=== PATIENT | female | born 1955 | race Two or more races ===

== ENCOUNTER 2019-05-11 11:24 | Emergency (ER) | payer OTHER, MEDICAID ==
[~2019-05-11] VITALS: Ht 167.6 cm; Wt 105.7 kg
[2019-05-11 12:21] LABS: Urine Bacteria NONE SEEN /hpf (None Seen); Urine Blood Negative /uL (Negative); Urine Mucus FEW (None Seen); Urine Specific Gravity 1.021 (1.001-1.035); Urine WBC 4 /hpf (0 - 5)
[2019-05-11] MEDS ORDERED: SODIUM CHLORIDE 0.9% 1,000 ML IV ONE ×2 (12:42)
[2019-05-11] MEDS ORDERED: KETOROLAC TROMETH 30 MG/ML 1ML VIAL IV ONE (12:45)
[2019-05-11 15:33] VITALS: BP 147/71
== END 2019-05-11 15:37 | disposition home or self-care (01) ==
LOC: ER 11:24
DX: N28.1 Cyst of kidney, acquired (principal); N39.0 Urinary tract infection, site not specified; J45.909 Unspecified asthma, uncomplicated; M54.9 Dorsalgia, unspecified; E11.9 Type 2 diabetes mellitus without complications; I10 Essential (primary) hypertension; Z90.49 Acquired absence of other specified parts of digestive tract
CPT/HCPCS: 74176; 81001; 96374; 99284; J1885; J7030

== ENCOUNTER 2024-02-02 11:18 | Inpatient (IN) | payer OTHER, MEDICAID ==
[~2024-02-02] VITALS: Ht 165.1 cm; Wt 100.7 kg
[~2024-02-02 11:18] MED LIST: ALBU108A5 PO; ASPI-498 PO; ATOR-507 PO; BECL40AE11 PO; LISI2.5T47 PO; METF-489 PO; METO-158 PO; PANT40T PO
[2024-02-02 11:54] LABS: Basophils # (auto) 0 10 ^3/uL (0-0.2); Basophils % (auto) 0.3 % (0.0-2.0); Eosinophils # (auto) 0.1 10 ^3/uL (0-0.8); Eosinophils % (auto) 2.2 % (0.0-7.0); Hematocrit 42.7 % (36.0-46.0); Hemoglobin 14.7 g/dL (12.2-16.2); Lymphocytes # (auto) 1.1 10 ^3/uL (0.4-5.4); Lymphocytes % (auto) 16.9 % (10.0-50.0); Mean Corpuscular Hemoglobin 30.4 pg (28.0-32.0); Mean Corpuscular Hgb Conc. 34.5 g/dL (32.0-36.0); Mean Corpuscular Volume 88.1 fL (80.0-100.0); Monocytes # (auto) 0.4 10 ^3/uL (0-1.3); Monocytes % (auto) 5.3 % (0.0-12.0); Neutrophils % (auto) 75.3 % (37.0-80.0); Red Blood Cells 4.84 10^6/uL (4.0-5.20); Red Cell Distribution Width 13.6 % (11.8-14.3); White Blood Cell 6.7 10^3/uL (4.4-10.8)
[2024-02-02 12:05] LABS: Urine Bacteria None Seen /hpf (None Seen)
[2024-02-02 12:11] LABS: Alanine Aminotransferase 61 U/L (7-40); Albumin 4.5 g/dL (3.2-4.8); Alkaline Phosphatase 87 U/L (46-116); Anion Gap 11 (5-15); Aspartate Aminotransferase 32 U/L (13-40); BUN/Creatinine Ratio 15.1 (10.0-20.0); Bilirubin, Total 1.1 mg/dL (0.2-1.0); Blood Urea Nitrogen 11 mg/dL (9-23); Calcium 9.6 mg/dL (8.7-10.4); Carbon Dioxide 27 mmol/L (20-30); Chloride 104 mmol/L (98-107); Glucose 159 mg/dL (74-106); Sodium 142 mmol/L (136-145); Total Protein 7.3 g/dL (5.7-8.2)
[2024-02-02 12:36] LABS: Urine Blood Negative /uL (Negative); Urine Clarity Clear (Clear); Urine Color Yellow (Yellow); Urine Mucus FEW (None Seen); Urine Protein, UAD 1+ (Negative); Urine Specific Gravity 1.019 (1.001-1.035); Urine Urobilinogen 2 mg/dL (Negative); Urine WBC 5 /hpf (0 - 5); Urine pH 6.5 (5.0-9.0)
[2024-02-02] MEDS: ONDANSETRON HCL 4 MG/2 ML VIAL IV ONE (14:59)
[2024-02-02] MEDS ORDERED: ONDANSETRON HCL 4 MG/2 ML VIAL IV PRN (15:00)
[2024-02-02] MEDS: cefTRIAXone 1GM/50ML D5W 50 ML IV ONE (15:00)
[2024-02-02] MEDS ORDERED: DOCUSATE SOD 100 MG CAP PO PRN (15:00)
[2024-02-02] MEDS: ASPirin 81 mg TAB PO ONE (15:00)
[2024-02-02] MEDS ORDERED: MORPHINE SULFATE INJ 2 MG/ml SYRG IV PRN (15:00)
[2024-02-02] MEDS: POTASSIUM CHL 20MEQ/100ML 100 ML IV ONE (15:43)
[2024-02-02 15:55] VITALS: BP 151/88; PULSE 99; RESP 19; TEMP 99.1; O2SAT 93
[2024-02-02 16:00] VITALS: PULSE 100; RESP 18; O2SAT 94
[2024-02-02] MEDS: HYDROcodone-ACET 5/325MG TAB PO PRN (16:54)
[2024-02-02] MEDS: NITROGLYCERIN 0.4 MG SL TAB SL PRN (18:45)
[2024-02-02 19:30] VITALS: PULSE 96; RESP 16; O2SAT 92
[2024-02-02] MEDS: SODIUM CHLOR 0.9% PF (SALINE LOCK) 10ML VIAL/SYR IV SCH (22:26)
[2024-02-02] MEDS: METOPROLOL TARTRATE 50 MG TAB PO SCH (22:29)
[2024-02-02] MEDS: ATORVASTATIN 20 MG TAB PO SCH (22:29)
[2024-02-02 23:30] VITALS: BP 141/81; PULSE 88; RESP 18; TEMP 98.2; O2SAT 95
[2024-02-02 23:40] VITALS: BP 141/85; PULSE 88; RESP 18; TEMP 98.2; O2SAT 96
[2024-02-03] VITALS (14 sets, daily range): BP systolic 136–158; BP diastolic 57–78; PULSE 66–90; RESP 16–18; TEMP 97.6–98.6; O2SAT 92–99
[2024-02-03] MEDS: ACETAMINOPHEN 325 MG TAB PO PRN (00:29)
[2024-02-03] MEDS: HYDROmorphone HCL 2 MG/ML VL/or syr IV PRN (01:45)
[2024-02-03] MEDS ORDERED: HYDR1TAB97 PO (01:58)
[2024-02-03] MEDS ORDERED: DEXTROSE (50%) 50ML SYRG IV PRN (02:00)
[2024-02-03] MEDS ORDERED: CYCL-611 PO (02:02)
[2024-02-03] MEDS: ALBUTEROL SULF 2.5 MG/0.5ML(0.5%) NEB SOLN NEB PRN (05:13)
[2024-02-03] MEDS: ACCU-CHEK COMFORT CURVE STRIP VI SCH (06:41)
[2024-02-03] MEDS: InsuLIN REG 1unit/0.01ml Soln (100units/ml) SC SCH (06:46)
[2024-02-03] MEDS: PANTOPRAZOLE 40 MG TAB PO SCH (09:58)
[2024-02-03] MEDS: ASPirin-EC 81 mg tab PO SCH (09:58)
[2024-02-03] MEDS: ENOXAPARIN SOD 40 MG/0.4 ML SYRINGE SC SCH (10:00)
[2024-02-03] MEDS: LISINOPRIL 5 MG TAB PO SCH (10:01)
[2024-02-04] VITALS (8 sets, daily range): BP systolic 133–151; BP diastolic 65–82; PULSE 70–81; RESP 18; TEMP 36.7; O2SAT 92–98
[2024-02-06 08:50] LABS: Hepatitis B Surface Antigen Negative (Negative)
[2024-02-06 09:12] LABS: Hepatitis C Antibody Negative (Negative)
== END 2024-02-04 14:15 | disposition home or self-care (01) | DRG 311 ==
LOC: ER 11:18 → TELE 14:58 → TELE-WESTW 22:55
PROVIDERS: ADMIT Internal Medicine; ATTEND Family Medicine
DX: I20.89 Other forms of angina pectoris (principal); E11.9 Type 2 diabetes mellitus without complications; I10 Essential (primary) hypertension; E87.6 Hypokalemia; E78.5 Hyperlipidemia, unspecified; J45.909 Unspecified asthma, uncomplicated; I25.2 Old myocardial infarction; Z87.442 Personal history of urinary calculi; Z90.49 Acquired absence of other specified parts of digestive tract; Z79.4 Long term (current) use of insulin; Z79.899 Other long term (current) drug therapy
CPT/HCPCS: 36415; 71045; 80053; 81001; 82962; 84484; 85025; 86803; 87340; 93005; 93306; 94640; 99291; G0378; J1815; J2405; J3480

== ENCOUNTER 2024-08-08 20:08 | Emergency (ER) | payer OTHER, MEDICAID ==
[~2024-08-08] VITALS: Ht 167.6 cm; Wt 95.0 kg
[~2024-08-08 20:08] MED LIST changes: +CYCL-611 PO; +HYDR1TAB97 PO
[2024-08-08 20:33] LABS: Basophils # (auto) 0 10 ^3/uL (0-0.2); Basophils % (auto) 0.4 % (0.0-2.0); Eosinophils # (auto) 0.1 10 ^3/uL (0-0.8); Eosinophils % (auto) 1.7 % (0.0-7.0); Hematocrit 41.1 % (36.0-46.0); Hemoglobin 13.8 g/dL (12.2-16.2); Lymphocytes # (auto) 1.9 10 ^3/uL (0.4-5.4); Lymphocytes % (auto) 36.6 % (10.0-50.0); Mean Corpuscular Hemoglobin 30.2 pg (28.0-32.0); Mean Corpuscular Hgb Conc. 33.5 g/dL (32.0-36.0); Mean Corpuscular Volume 90.3 fL (80.0-100.0); Monocytes # (auto) 0.3 10 ^3/uL (0-1.3); Monocytes % (auto) 6.5 % (0.0-12.0); Neutrophils # (auto) 2.8 10 ^3/uL (1.6-8.6); Neutrophils % (auto) 54.8 % (37.0-80.0); Nucleated Red Blood Cells % 0.1 %; Platelet Count (auto) 164 10^3/uL (140-450); Red Blood Cells 4.55 10^6/uL (4.0-5.20); Red Cell Distribution Width 12.9 % (11.8-14.3); White Blood Cell 5.2 10^3/uL (4.4-10.8)
--- NOTE | 2024-08-08 20:42 | DVH ---
EXAMINATION: AP portable chest radiograph CLINICAL HISTORY: cp COMPARISON: XY CHEST PORTABLE on DOS: 02/02/24 FINDINGS: Patient is leaning to the left. Mild interstitial prominence. No lobar consolidation identified. No definite pleural effusion or pneu mothorax. Aortic calcifications. The cardiomediastinal silhouette otherwise appears within normal li mits given technique. IMPRESSION: Limited study. Interstitial prominence is relatively nonspecific but can be seen with edema, reactive airway changes as well as atypical / viral infection. Please correlate clinically. Only dina garg 2D
[2024-08-08 21:33] LABS: Albumin 4.7 g/dL (3.2-4.8); Alkaline Phosphatase 96 U/L (46-116); Anion Gap 10 (5-15); Aspartate Aminotransferase 31 U/L (13-40); BUN/Creatinine Ratio 25.6 (10.0-20.0); Bilirubin, Total 0.3 mg/dL (0.2-1.0); Calcium 9.9 mg/dL (8.7-10.4); Carbon Dioxide 22 mmol/L (20-31); Potassium 4.2 mmol/L (3.5-5.1); Sodium 142 mmol/L (136-145); Total Protein 6.9 g/dL (5.7-8.2)
[2024-08-08 21:39] LABS: Alanine Aminotransferase 59 U/L (7-40); Blood Urea Nitrogen 23 mg/dL (9-23); Chloride 110 mmol/L (98-107); Glucose 125 mg/dL (74-106)
--- NOTE | 2024-08-08 22:39 | ED.PDOC ---
HPI Comments Patient complaining of chest pain over the sternum which started at 4:00 p.m.. States she was driving to [place] her daughter when chest pain came on unprovoked. 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 States she was pending results. Nothing makes it better, nothing makes it worse. No shortness a breath. No cough. Chief Complaint: Chest Pain Time Seen by MD: 20:12 Primary Care Provider: AMELIA Reviewed Notes: Nurses Notes Allergies: Uncoded Allergies: DUST (Allergy, Unknown, 05/11/19) Home Meds Active Scripts Metoprolol Tartrate (Metoprolol Tartrate) 50 Mg Tab, 50 MG PO BID, #180 TAB Prov:DORA CASTANEDA MD 05/25/22 Atorvastatin Calcium (Lipitor) 40 Mg Tab, 1 TAB PO QPM, #90 TAB 1 Refill Prov:DORA CASTANEDA MD 05/25/22 Aspirin (ASPIRIN 81) 81 Mg Tab, 81 MG PO DAILY, #90 TAB Prov:DORA CASTANEDA MD 05/25/22 Reported Medications Cyclobenzaprine HCl (Cyclobenzaprine Hydrochlo) 10 Mg Tab, 10 MG PO TID for for Low back pain, TAB 02/03/24 Hydrocodone-Acetaminophen (Hydrocodone/Acetaminophen 5-325 mg) 1 Tab Tab, 1 TAB PO DAILY for for Low back pain, TAB 02/03/24 Lisinopril (Lisinopril) 2.5 Mg Tab, 2 TAB PO DAILY, #30 TAB 5 Refills 05/21/22 Metformin Hydrochloride (METFORMIN HCL ER) 500 Mg Tab, 1 TAB PO DAILY, #90 TAB 1 Refill 05/21/22 Pantoprazole Sodium Sesquihydr (Pantoprazole Sodium) 40 Mg Tab, 1 TAB PO DAILY 05/21/22 Albuterol Sulfate (Albuterol Sulfate Hfa) 108 Mcg/Act Aer, 2 PUFF PO QID 05/21/22 Beclomethasone Dipropionate (Qvar Redihaler) 40 Mcg/Act Aer, 1 PUFF PO BID 05/21/22 Information Source: Patient Mode of Arrival: Ambulatory Past Medical History PAST MEDICAL HISTORY: Asthma, DM, HTN, Kidney Stones, UTI'S Surgical History: Cholecystectomy, Tubal Ligation [employer]JUST[employer] INSPECTOR History: Denies all [employer] INSPECTOR Hx Family History Family History: Reviewed,noncontributory to illness Social History Smoker: Non-Smoker Alcohol: Denies ETOH Use Drugs: Denies Drug Use Lives In: Home Physical Exam General Appearance: No Apparent Distress, Normal HEENT: Normal ENT Inspection, Pharynx Normal, TMs Normal Neck: Full Range of Motion, Non-Tender, Normal, Normal Inspection Respiratory: Chest Non-Tender, Lungs Clear, No Accessory Muscle Use, No Respiratory Distress, Normal Breath Sounds Cardiovascular: No Edema, No JVD, No Murmur, No Gallop, Normal Peripheral Pulses, Regular Rate/Rhythm, Other (Chest pain reproducible with palpation) Breast Exam: Deferred Gastrointestinal: No Organomegaly, Non Tender, No Pulsatile Mass, Normal Bowel Sounds, Soft Genitalia: Deferred Pelvic: Deferred Rectal: Deferred Extremities: No calf tenderness, Normal capillary refill, Normal inspection, Normal range of motion, Non-tender, No pedal edema Musculoskeletal : Apperance: Normal Neurologic: Alert, academic administrator II-XII nml as Tested, No Motor Deficits, Normal Affect, Normal Mood, No Sensory Deficits Cerebellar Function: Normal Reflexes: Normal Skin: Dry, Normal Color, Warm Lymphatic: No Adenopathy Was a procedure done? Was a procedure done?: No CP Differential Dx Differential Diagnosis: Angina, Anxiety / Panic Attack, Heart Failure, IN X-Ray, Labs, Meds, VS Vital Signs Date Time Temp Pulse Resp B/P (MAP) Pulse Ox O2 Delivery O2 Flow Rate FiO2 08/08/24 20:22 98.1 84 20 160/82 (108) 98 08/08/24 20:14 84 Lab Test 08/08/24 21:16 08/08/24 20:20 Range/Units Troponin I High Sensitivity < 3 L < 3 L </=34 ng/L White Blood Count 5.2 4.4-10.8 10^3/uL Red Blood Count 4.55 4.0-5.20 10^6/uL Hemoglobin 13.8 12.2-16.2 g/dL Hematocrit 41.1 36.0-46.0 % Mean Corpuscular Volume 90.3 80.0-100.0 fL Mean Corpuscular Hemoglobin 30.2 28.0-32.0 pg Mean Corpuscular Hemoglobin Concent 33.5 32.0-36.0 g/dL Red Cell Distribution Width 12.9 11.8-14.3 % Platelet Count 164 140-450 10^3/uL Mean Platelet Volume 8.9 6.9-10.8 fL Neutrophils (%) (Auto) 54.8 37.0-80.0 % Lymphocytes (%) (Auto) 36.6 10.0-50.0 % Monocytes (%) (Auto) 6.5 0.0-12.0 % Eosinophils (%) (Auto) 1.7 0.0-7.0 % Basophils (%) (Auto) 0.4 0.0-2.0 % Neutrophils # (Auto) 2.8 1.6-8.6 10 ^3/uL Lymphocytes # (Auto) 1.9 0.4-5.4 10 ^3/uL Monocytes # (Auto) 0.3 0-1.3 10 ^3/uL Eosinophils # (Auto) 0.1 0-0.8 10 ^3/uL Basophils # (Auto) 0 0-0.2 10 ^3/uL Nucleated Red Blood Cells 0.1 % Sodium Level 142 136-145 mmol/L Potassium Level 4.2 3.5-5.1 mmol/L Chloride Level 110 H 98-107 mmol/L Carbon Dioxide Level 22 20-31 mmol/L Anion Gap 10 5-15 Blood Urea Nitrogen 23 9-23 mg/dL Creatinine 0.90 0.550-1.02 mg/dL Glomerular Filtration Rate Calc 68 >90 mL/min BUN/Creatinine Ratio 25.6 H 10.0-20.0 Serum Glucose 125 H 74-106 mg/dL Calcium Level 9.9 8.7-10.4 mg/dL Total Bilirubin 0.3 0.2-1.0 mg/dL Aspartate Amino Transferase (AST) 31 13-40 U/L Alanine Aminotransferase (ALT) 59 H 7-40 U/L Alkaline Phosphatase 96 46-116 U/L Total Protein 6.9 5.7-8.2 g/dL Albumin 4.7 3.2-4.8 g/dL X-Ray, Labs, Meds, VS Comment Patient states she saw Dr. Morgan cardiology and had echocardiogram and stress test done pending results. Patient does report she has been told she has angina. Patient clinically stable at this time advised her to follow up with Dr. Morgan tomorrow. Time of 1ST Reevaluation: 22:38 Reevaluation 1ST: Improved Patient Education/Counseling: Diagnosis, Treatment, Need For Follow Up (Follow up with mold loft worker tomorrow. Return to the emergency department 24 hours if symptoms have not improved.) Family Education/Counseling: Diagnosis, Treatment Departure 1 Departure Time of Disposition: 22:37 Impression: Primary Impression: Angina pectoris Disposition: 01 HOME / SELF CARE / HOMELESS Condition: Fair Discharged With: Self Critical Care Note Critical Care Time?: No Stability Stability form required: No Heart Score Heart Score: Heart Score Response (Comments) Value History Moderate Suspicious 1 EKG Normal 0 Age >65 2 Risk Factors 1 or 2 risk factors 1 Troponin Normal limit 0 Total 4 RENEE PAL Aug 08, 2024 22:39
[2024-08-08 23:02] VITALS: BP 159/72; PULSE 78; RESP 12; O2SAT 98
[2024-08-08] MEDS: NITROGLYCERIN 0.4 MG SL TAB SL ONE (23:03)
--- NOTE | 2024-08-10 09:16 | ECG ---
[facility] Test Date: 2024-08-08 Test Time: 20:14:13 Pat Name: SYLVIE LUNA Department: ER Room: Gender: F [employer]umber [employer] Operator: KINGSLEY : 1955 Requested By: HUEY BRANDT Order Number: [id number] Reading MD: Sulaiman Whitehead Measurements Intervals [place] Rate: 84 P: 72 [place]: 166 QRS: -57 QRSD: 114 T: 58 QT: 396 QTc: 469 Interpretive Statements Sinus rhythm LAD, consider left anterior fascicular block Low voltage, extremity and precordial leads Abnormal R-wave progression, late transition Baseline wander in lead(s) I,II,aVR,V5 Electronically Signed On 08-10-2024 9:26:31 PST by Sulaiman Whitehead Please click the below link to view image of tracing.
== END 2024-08-08 23:03 | disposition home or self-care (01) ==
LOC: ER 20:08
DX: I20.9 Angina pectoris, unspecified (principal); J45.909 Unspecified asthma, uncomplicated; E11.9 Type 2 diabetes mellitus without complications; I10 Essential (primary) hypertension; Z87.442 Personal history of urinary calculi; Z90.49 Acquired absence of other specified parts of digestive tract; Z98.51 Tubal ligation status; Z91.09 Other allergy status, other than to drugs and biological substances
CPT/HCPCS: 36415; 71045; 80053; 84484; 85025; 93005